=== PATIENT | female | born 1980 | race Caucasian/White ===

== ENCOUNTER 2016-11-21 17:40 | Emergency (ER) | payer OTHER ==
[~2016-11-21] VITALS: Ht 167.6 cm; Wt 95.0 kg
[2016-11-21 17:42] VITALS: BP 172/103; PULSE 106; RESP 19; TEMP 98.7; O2SAT 100
--- NOTE | 2016-11-21 17:48 | PD ---
Physical Exam Time Seen by Provider: 17:46 Narrative 36 y/o female presents for evaluation of 3 days duration nausea/vomiting, today developing R flank pain. vital signs reviewed. Seen at triage desk. Awaiting bed placement. Data Data Last Documented VS Vital Signs Date Time Temp Pulse Resp B/P Pulse Ox O2 Delivery O2 Flow Rate FiO2 11/21/16 17:42 98.7 106 19 172/103 100 MDM Medical Record Reviewed: Yes Supervised Visit with SHIVANI: Isai Delatorre November 21, 2016 17:48
[2016-11-21] MEDS ORDERED: XIFA550T4 PO (20:49)
[2016-11-21] MEDS ORDERED: FOLI1TAB4 PO (20:49)
[2016-11-21] MEDS ORDERED: DICY10 PO (20:49)
[2016-11-21] MEDS ORDERED: OMEP20TA PO (20:49)
[2016-11-21] MEDS ORDERED: GABA600T PO (20:49)
[2016-11-21] MEDS ORDERED: SPIR25 PO (20:51)
[2016-11-21] MEDS ORDERED: OXYC-392 PO (22:26)
[2016-11-21] MEDS ORDERED: ZOFR4TAB3 SL (22:26)
== END 2016-11-21 20:00 | disposition left against medical advice (07) ==
LOC: NED 17:40
DX: R11.2 Nausea with vomiting, unspecified (principal)
CPT/HCPCS: 99283

== ENCOUNTER 2016-11-21 20:23 | Emergency (ER) | payer OTHER ==
[2016-11-21 20:28] VITALS: BP 158/110; PULSE 111; RESP 22; TEMP 100.6; O2SAT 98
[2016-11-21] MEDS ORDERED: DICY10 PO (20:49)
[2016-11-21] MEDS ORDERED: GABA600T PO (20:49)
[2016-11-21] MEDS ORDERED: XIFA550T4 PO (20:49)
[2016-11-21] MEDS ORDERED: OMEP20TA PO (20:49)
[2016-11-21] MEDS ORDERED: FOLI1TAB4 PO (20:49)
[2016-11-21] MEDS ORDERED: SPIR25 PO (20:51)
--- NOTE | 2016-11-21 21:06 | PD ---
HPI Chief Complaint: GI Complaint Time Seen by Provider: 20:55 Travel History International Travel<30 days: No Contact w/Intl Traveler<30days: No Traveled to known affect area: No History of Present Illness HPI This 36-year-old female is complaining of vomiting and diarrhea. She says the symptoms been going on for about 3 days. She says she is not able to hold anything down today she says that about a year ago she had liver failure secondary to heavy drinking. She has stopped drinking has been told that her liver has recovered considerably. She does say that somebody else at home has been having a similar illness PFS Past Medical History Anxiety: Yes Diminished Hearing: No Medical other: Yes (liver failure 2016, chronic low back pain) Tetanus Vaccination: Unknown Influenza Vaccination: No ?: Not Dilation and Curettage (D&C): Yes Tubal Ligation: Yes Past Surgical History Joint Replacement: Yes (right knee ) Neurologic Surgery: Yes (right elbow ) Social History Alcohol Use: No Tobacco Use: Yes (07/24 PPD) Substance Use: No Allergies-Medications (Allergen,Severity, Reaction): Coded Allergies: Afrin (Verified Allergy, Unknown, 11/21/16) Reported Meds & Prescriptions Reported Meds & Active Scripts Active Reported Aldactone (Spironolactone) 25 Mg Tab 25 Mg PO BIDPC Xifaxan (Rifaximin) 550 Mg Tab 550 Mg PO DAILY Folate (Folic Acid) 1 Mg Tab 1 Mg PO DAILY Omeprazole 20 Mg Tab 20 Mg PO DAILY Bentyl (Dicyclomine HCl) 10 Mg Cap 10 Mg PO TID PRN Gabapentin 600 Mg Tab 600 Mg PO TID Review of Systems General / Constitutional: Positive: Fever Eyes: No: Diploplia, Blurred Vision HENT: No: Headaches, Vertigo Cardiovascular: No: Chest Pain or Discomfort, Palpitations Respiratory: No: Shortness of Breath Gastrointestinal: Positive: Nausea, Vomiting, Diarrhea, Abdominal Pain Genitourinary: No: Urgency, Frequency Musculoskeletal: No: Myalgias, Arthralgias Skin: No Rash Neurologic: No: Weakness, Dizziness Physical Exam Narrative GENERAL: Well-developed female SKIN: Focused skin assessment warm/dry. HEAD: Atraumatic. Normocephalic. EYES: Pupils equal and round. No scleral icterus. No injection or drainage. ENT: No nasal bleeding or discharge. Mucous membranes pink and moist. NECK: Trachea midline. No JVD. CARDIOVASCULAR: Regular rate and rhythm. No murmur appreciated. RESPIRATORY: No accessory muscle use. Clear to auscultation. Breath sounds equal bilaterally. GASTROINTESTINAL: Abdomen soft, non-tender, nondistended. Hepatic and splenic margins not palpable. MUSCULOSKELETAL: No obvious deformities. No clubbing. No cyanosis. No edema. NEUROLOGICAL: Awake and alert. No obvious cranial nerve deficits. Motor grossly within normal limits. Normal speech. PSYCHIATRIC: Appropriate mood and affect; insight and judgment normal. Data Data Last Documented VS Vital Signs Date Time Temp Pulse Resp B/P Pulse Ox O2 Delivery O2 Flow Rate FiO2 11/21/16 21:24 100.4 99 20 97 Room Air 11/21/16 20:28 158/110 Orders Complete Blood Count With Diff (11/21/16 21:01) Comprehensive Metabolic Panel (11/21/16 21:01) Lipase (11/21/16 21:01) Urinalysis - C+S If Indicated (11/21/16 21:01) Sodium Chlor 0.9% 1000 Ml Inj (Ns 1000 M (11/21/16 21:15) Ondansetron Inj (Zofran Inj) (11/21/16 21:15) Hydromorphone Pf Inj (Dilaudid Pf Inj) (11/21/16 21:15) Ct Abd/Pel W Iv Contrast(Rout) (11/21/16 21:01) Sodium Chlor 0.9% 1000 Ml Inj (Ns 1000 M (11/21/16 21:45) Iohexol 350 Inj (Omnipaque 350 Inj) (11/21/16 21:56) Labs Laboratory Tests Test 11/21/16 21:14 White Blood Count 5.0 TH/MM3 Red Blood Count 4.90 MIL/MM3 Hemoglobin 14.6 GM/DL Hematocrit 44.1 % Mean Corpuscular Volume 90.0 FL Mean Corpuscular Hemoglobin 29.8 PG Mean Corpuscular Hemoglobin 33.2 % Concent Red Cell Distribution Width 13.8 % Platelet Count 131 TH/MM3 Mean Platelet Volume 7.5 FL Neutrophils (%) (Auto) 77.5 % Lymphocytes (%) (Auto) 15.3 % Monocytes (%) (Auto) 6.6 % Eosinophils (%) (Auto) 0.4 % Basophils (%) (Auto) 0.2 % Neutrophils # (Auto) 3.9 TH/MM3 Lymphocytes # (Auto) 0.8 TH/MM3 Monocytes # (Auto) 0.3 TH/MM3 Eosinophils # (Auto) 0.0 TH/MM3 Basophils # (Auto) 0.0 TH/MM3 CBC Comment DIFF FINAL Differential Comment Urine Color YELLOW Urine Turbidity HAZY Urine pH 6.0 Urine Specific [place] 1.020 Urine Protein 100 mg/dL Urine Glucose (UA) NEG mg/dL Urine Ketones 80 OR GREATER mg/dL Urine Occult Blood MOD Urine Nitrite NEG Urine Bilirubin NEG Urine Leukocyte Esterase NEG Urine RBC 0-3 /hpf Urine WBC 3-5 /hpf Urine Amorphous Sediment FEW Urine Bacteria FEW /hpf Urine Mucus FEW /lpf Microscopic Urinalysis Comment CULT NOT INDICATED Sodium Level 137 MEQ/L Potassium Level 3.8 MEQ/L Chloride Level 103 MEQ/L Carbon Dioxide Level 16.3 MEQ/L Anion Gap 18 MEQ/L Blood Urea Nitrogen 9 MG/DL Creatinine 0.95 MG/DL Estimat Glomerular Filtration 66 ML/MIN Rate Random Glucose 83 MG/DL Calcium Level 8.5 MG/DL Total Bilirubin 0.7 MG/DL Aspartate Amino Transf 165 U/L (AST/SGOT) Alanine Aminotransferase 88 U/L (ALT/SGPT) Alkaline Phosphatase 229 U/L Total Protein 8.0 GM/DL Albumin 3.8 GM/DL Lipase 305 U/L [facility] Medical Decision Making Medical Screen Exam Complete: Yes Emergency Medical Condition: Yes Medical Record Reviewed: Yes Differential Diagnosis Differential includes renal colic, gastroenteritis, hepatic failure Narrative Course Patient given IV fluids. Her bilirubin is normal. There is slight elevation of transaminases. She is dehydrated has been given 2 L of fluids. He is also given Zofran with nausea. He'll be released with prescription for Zofran and oxycodone for pain Diagnosis Primary Impression: Gastroenteritis Scripts Oxycodone 5 Mg Tab5 Mg PO Q6H PRN (PAIN) #20 TAB Ref 0 Prov:Jose Sparks MD 11/21/16 Ondansetron Odt (Zofran Odt)4 Mg Tab4 Mg SL Q6HR PRN (Nausea/Vomiting) #10 TAB Ref 0 Prov:Jose Sparks MD 11/21/16 Disposition: DISCHARGE HOME Condition: Stable Jose Sparks MD November 21, 2016 21:06
[2016-11-21] MEDS ORDERED: ONDANSETRON HCL 4 MG/2 ML VIAL IV PUSH ONE (21:15)
[2016-11-21] MEDS ORDERED: SODIUM CHLOR 0.9% 1000 ML INJ 1,000 ML IV ONE ×2 (21:15→21:45)
[2016-11-21] MEDS ORDERED: HYDROmorphone HCL PF 1 MG/ML VIAL IV PUSH ONE ×2 (21:15→22:30)
[2016-11-21 21:22] LABS: GLUCOSE,URINE NEG (NEG); NITRITE,URINE NEG (NEG)
[2016-11-21 21:24] VITALS: PULSE 99; RESP 20; TEMP 100.4; O2SAT 97
[2016-11-21 21:26] LABS: BLOOD, URINE MOD (NEG); KETONE, URINE 80 OR GREATER mg/dL (NEG)
[2016-11-21 21:27] LABS: BACTERIA, URINE FEW /hpf; MUCUS URINE FEW /lpf (OCC); RBC, URINE 0-3 /hpf (0-3); URINE COLOR YELLOW (YELLW/STRAW)
[2016-11-21 21:28] LABS: COMMENT (UR) CULT NOT INDICATED; CULTURE IF INDICATED CULT NOT INDICATED
[2016-11-21 21:30] LABS: AUTOMATED NEUTROPHIL # 3.9 TH/MM3 (1.8-7.7); BASOPHIL % 0.2 % (0.0-2.0); CHLORIDE 103 MEQ/L (98-107); EOSINOPHIL % 0.4 % (0.0-4.0); HEMATOCRIT 44.1 % (35.0-46.0); HEMO FLAGS DIFF FINAL; LYMPH % 15.3 % (9.0-44.0); LYMPHOCYTE # 0.8 TH/MM3 (1.0-4.8); MEAN CORPUSCULAR HEMOGLOBIN 29.8 PG (27.0-34.0); MEAN CORPUSCULAR HGB CONC 33.2 % (32.0-36.0); MONO % 6.6 % (0.0-8.0); NEUT % 77.5 % (16.0-70.0); PLATELET COUNT 131 TH/MM3 (150-450); POTASSIUM 3.8 MEQ/L (3.5-5.1); RED CELL DISTRIBUTION WIDTH 13.8 % (11.6-17.2); SODIUM (NA) 137 MEQ/L (136-145)
[2016-11-21 21:34] LABS: ANION GAP 18 MEQ/L (5-15); BICARBONATE 16.3 MEQ/L (21.0-32.0); BLOOD UREA NITROGEN 9 MG/DL (7-18)
[2016-11-21 21:37] LABS: ALT (GPT) 88 U/L (10-53); AST (GOT) 165 U/L (15-37); GLOMERULAR FILTRATION RATE 66 ML/MIN (>89)
[2016-11-21 21:38] LABS: TOTAL BILIRUBIN ADULT 0.7 MG/DL (0.2-1.0)
[2016-11-21 21:40] LABS: ALKALINE PHOSPHATASE 229 U/L (45-117)
[2016-11-21] MEDS ORDERED: IOHEXOL 350 MG/ML 10 ML VIAL (for RAD DIAG) IV ONE (21:56)
--- NOTE | 2016-11-21 22:10 | RADHPO ---
EXAM DATE/TIME: 11/21/2016 21:47 [place] COMPARISON: No previous studies available for comparison. INDICATIONS : Right flank pain, nausea, vomiting, and diarrhea. IV CONTRAST: 100 cc Omnipaque 350 (iohexol) IV ORAL CONTRAST: No oral contrast ingested. RADIATION DOSE: 20.18 CTDIvol (mGy) MEDICAL HISTORY : Liver failure. SURGICAL HISTORY : Tubal ligation. ENCOUNTER: Initial ACUITY: 3 days PAIN SCALE: 8/10 LOCATION: Right flank TECHNIQUE: Volumetric scanning of the abdomen and pelvis was performed. Using automated exposure control and ad justment of the mA and/or kV according to patient size, radiation dose was kept as low as reasonably achievable to obtain optimal diagnostic quality images. FINDINGS: LOWER LUNGS: The visualized lower lungs are clear. LIVER: Homogeneous density without lesion. There is no dilation of the biliary tree. No calcified gallston es. There is severe hepatic steatosis. The liver is enlarged. SPLEEN: Normal size without lesion. PANCREAS: Within normal limits. KIDNEYS: Normal in size and shape. There is no mass, stone or hydronephrosis. ADRENAL GLANDS: Within normal limits. VASCULAR: There is no aortic aneurysm. BOWEL/MESENTERY: There are multiple loops of non-dilated air-containing small bowel with multiple small air-fluid leve ls. Gas and stool is noted segmentally in the colon. There is no free air or mass effect. ABDOMINAL WALL: Within normal limits. RETROPERITONEUM: There is no lymphadenopathy. BLADDER: No wall thickening or mass. REPRODUCTIVE: Within normal limits. INGUINAL: There is no lymphadenopathy or hernia. MUSCULOSKELETAL: Within normal limits for patient age. CONCLUSION: 1. Enlarged liver with severe hepatic steatosis. 2. Nonspecific bowel gas pattern most characteristic of an ileus or gastroenteritis. Bhaskar Chaudhary MD on November 21, 2016 at 22:05 Board Certified Radiologist. This report was verified electronically.
[2016-11-21] MEDS ORDERED: OXYC-392 PO (22:26)
[2016-11-21] MEDS ORDERED: ZOFR4TAB3 SL (22:26)
[2016-11-21 22:54] VITALS: RESP 18
[2016-11-21 22:55] VITALS: BP 162/92; TEMP 98.4
== END 2016-11-21 23:07 | disposition home or self-care (01) ==
LOC: PHED 20:23
DX: K52.9 Noninfective gastroenteritis and colitis, unspecified (principal); F17.210 Nicotine dependence, cigarettes, uncomplicated; K72.90 Hepatic failure, unspecified without coma
CPT/HCPCS: 74177; 80053; 81001; 83690; 85025; 96361; 96374; 96375; 96376; 99284; J1170; J2405; J7030; Q9967